=== PATIENT | female | born 1965 | race African-American/Black ===

== ENCOUNTER 2017-04-02 15:37 | Emergency (ER) | payer OTHER ==
[~2017-04-02] VITALS: Ht 175.3 cm; Wt 65.8 kg
[2017-04-02 15:37] VITALS: BP 128/79
[~2017-04-02 15:37] MED LIST: ACET1TAB25
[2017-04-02 16:21] LABS: APPEARANCE,URINE Slightly Cloudy (CLEAR); BILIRUBIN,URINE Negative (NEGATIVE); BLOOD, URINE Negative Ery/uL (NEGATIVE); COLOR,URINE Dark (YELLOW); KETONES,URINE Negative (NEGATIVE); LEUKOCYTE ESTERASE ,URINE Negative (NEGATIVE); NITRITE, URINE Positive (NEGATIVE); PROTEIN,URINE Negative (NEGATIVE); UGLUCOSE Negative (NEGATIVE); UROBILINOGEN,URINE 0.2 EU/dL (0.2)
[2017-04-02 16:39] LABS: BACTERIA,URINE None seen /HPF (None Seen); RBC,URINE 0-3 /HPF (0-2); SQUAMOUS EPITHELIAL CELL,UR Few /HPF (None Seen); WBC,URINE 0-3 /HPF (0-3)
[2017-04-02] MEDS ORDERED: CEFTRIAXONE 500 MG VIAL ONE (17:00)
[2017-04-02] MEDS ORDERED: LIDOCAINE HCL/PF 2 % 5ML SDV 5 ML VIAL ONE (17:00)
[2017-04-02] MEDS ORDERED: AZITHROMYCIN 250 MG TABLET PO ONE (17:00)
[2017-04-02] MEDS ORDERED: CEFTRIAXONE 1 G VIAL IM ONE (17:00)
[2017-04-02] MEDS ORDERED: AZITHROMYCIN 250 MG TABLET ONE (17:00)
== END 2017-04-02 17:22 | disposition home or self-care (01) ==
LOC: ER 15:45
DX: N39.0 Urinary tract infection, site not specified (principal); F17.200 Nicotine dependence, unspecified, uncomplicated
CPT/HCPCS: 81001; 84703; 87077; 87086; 87186; 96372; 99284; A4606; J0696; J3490; Z7610; 81000-TC

== ENCOUNTER 2018-01-13 14:45 | Emergency (ER) | payer OTHER ==
[~2018-01-13] VITALS: Ht 175.3 cm; Wt 65.8 kg
[2018-01-13] MEDS ORDERED: CEFTRIAXONE 500 MG VIAL IM ONE (16:00)
[2018-01-13] MEDS ORDERED: AZITHROMYCIN 250 MG TABLET PO ONE (16:00)
[2018-01-13 16:27] LABS: APPEARANCE,URINE Clear (CLEAR); BILIRUBIN,URINE Negative (NEGATIVE); BLOOD, URINE Negative Ery/uL (NEGATIVE); COLOR,URINE Yellow (YELLOW); KETONES,URINE Negative (NEGATIVE); LEUKOCYTE ESTERASE ,URINE Trace (NEGATIVE); NITRITE, URINE Negative (NEGATIVE); PROTEIN,URINE Negative (NEGATIVE); UGLUCOSE Negative (NEGATIVE); UROBILINOGEN,URINE 0.2 EU/dL (0.2)
[2018-01-13 16:30] LABS: RBC,URINE 0-2 /HPF (0-2)
[2018-01-13] MEDS ORDERED: ONDANSETRON 4 MG TAB.RAPDIS SL ONE (16:30)
[2018-01-13] MEDS ORDERED: TRAMADOL HCL 50 MG TABLET PO ONE (16:30)
[2018-01-13 16:31] LABS: BACTERIA,URINE None seen /HPF (None Seen); SQUAMOUS EPITHELIAL CELL,UR Rare /HPF (None Seen); WBC,URINE 0-3 /HPF (0-3)
[2018-01-13] MEDS ORDERED: CEFTRIAXONE 500 MG VIAL ONE (16:49)
[2018-01-13] MEDS ORDERED: ONDANSETRON 4 MG TAB.RAPDIS ONE (16:50)
[2018-01-13] MEDS ORDERED: AZITHROMYCIN 250 MG TABLET ONE (16:50)
[2018-01-13] MEDS ORDERED: TRAMADOL HCL 50 MG TABLET ONE (16:50)
[2018-01-13] MEDS ORDERED: LIDOCAINE /MPF 1% VIAL 5 ML VIAL ONE (16:51)
--- NOTE | 2018-01-13 16:59 | NUR ---
Patient discharged to home in stable condition. Written and verbal after care instructions given. Patient verbalizes understanding of instruction.
[2018-01-13 17:10] VITALS: BP 128/75
== END 2018-01-13 17:10 | disposition home or self-care (01) ==
LOC: ER 14:50
DX: N73.8 Other specified female pelvic inflammatory diseases (principal); N85.8 Other specified noninflammatory disorders of uterus; R10.31 Right lower quadrant pain; F17.200 Nicotine dependence, unspecified, uncomplicated; Z60.2 Problems related to living alone
CPT/HCPCS: 81001; 84703; 87210; 87491; 87591; 96372; 99284; A4606; A6402; J0696; J3490; Q0162; Z7610; 81000-TC

== ENCOUNTER 2019-02-14 20:14 | Emergency (ER) | payer OTHER ==
[~2019-02-14] VITALS: Ht 175.3 cm; Wt 65.8 kg
[2019-02-14 20:43] VITALS: BP 146/80
[2019-02-14] MEDS ORDERED: AZITHROMYCIN 250 MG TABLET PO ONE (21:00)
[2019-02-14] MEDS ORDERED: ONDANSETRON 4 MG TAB.RAPDIS PO ONE (21:00)
[2019-02-14] MEDS ORDERED: CEFTRIAXONE 500 MG VIAL IM ONE (21:00)
[2019-02-14 21:08] LABS: APPEARANCE,URINE Clear (CLEAR); BILIRUBIN,URINE Negative (NEGATIVE); BLOOD, URINE Negative Ery/uL (NEGATIVE); COLOR,URINE Yellow (YELLOW); KETONES,URINE Trace (NEGATIVE); LEUKOCYTE ESTERASE ,URINE Negative (NEGATIVE); NITRITE, URINE Negative (NEGATIVE); PH,URINE 5.5 (5.0-8.0); PROTEIN,URINE Negative (NEGATIVE); UGLUCOSE Negative (NEGATIVE); UROBILINOGEN,URINE 0.2 EU/dL (0.2)
[2019-02-14] MEDS ORDERED: CEFTRIAXONE 500 MG VIAL ONE (21:09)
[2019-02-14] MEDS ORDERED: LIDOCAINE /MPF 1% VIAL 5 ML VIAL ONE (21:09)
[2019-02-14] MEDS ORDERED: ONDANSETRON 4 MG TAB.RAPDIS ONE (21:10)
[2019-02-14] MEDS ORDERED: AZITHROMYCIN 250 MG TABLET ONE (21:10)
[2019-02-14 21:24] LABS: BACTERIA,URINE Few /HPF (None Seen); RBC,URINE 0-2 /HPF (0-2); SQUAMOUS EPITHELIAL CELL,UR Few /HPF (None Seen); WBC,URINE 0-2 /HPF (0-3)
== END 2019-02-14 21:38 | disposition home or self-care (01) ==
LOC: ER 20:16
DX: Z20.2 Contact with and (suspected) exposure to infections with a predominantly sexual mode of transmission (principal); F17.200 Nicotine dependence, unspecified, uncomplicated; Z60.2 Problems related to living alone
CPT/HCPCS: 81001; 87491; 87591; 96372; 99283; J0696; J3490; Q0162; 81000-TC

== ENCOUNTER 2019-06-18 13:41 | Emergency (ER) | payer OTHER ==
[~2019-06-18] VITALS: Ht 165.1 cm; Wt 68.0 kg
[2019-06-18 13:53] VITALS: BP 141/85
== END 2019-06-18 14:34 | disposition home or self-care (01) ==
LOC: ER 13:41
DX: S02.5XXA Fracture of tooth (traumatic), initial encounter for closed fracture (principal); F17.200 Nicotine dependence, unspecified, uncomplicated; Z60.2 Problems related to living alone; X58.XXXA Exposure to other specified factors, initial encounter; Y93.89 Activity, other specified; Y92.89 Other specified places as the place of occurrence of the external cause; Y99.8 Other external cause status

== ENCOUNTER 2019-10-18 22:25 | Emergency (ER) | payer OTHER ==
[~2019-10-18] VITALS: Ht 175.3 cm; Wt 65.8 kg
--- NOTE | 2019-10-18 22:50 | NUR ---
PATIENT CAME TO ER BED 16 C/O SHARP 8/10 PELVIC PAIN FOR THE PAST 3x DAYS. PATIENT STATES THAT SHE TOOK 2 NAPROXEN PILLS PRIOR TO ARRIVAL. PATIENT STATES THAT IT PETIT A LITTLE WHEN SHE PEES. AAOX4. NO SOB. BREATHING EVENLY AND UNLABORED ON ROOM AIR.
[2019-10-18 23:02] LABS: APPEARANCE,URINE Clear (CLEAR); BILIRUBIN,URINE Negative (NEGATIVE); BLOOD, URINE Negative Ery/uL (NEGATIVE); COLOR,URINE Yellow (YELLOW); KETONES,URINE Negative (NEGATIVE); LEUKOCYTE ESTERASE ,URINE Negative (NEGATIVE); NITRITE, URINE Negative (NEGATIVE); PH,URINE 5.5 (5.0-8.0); PROTEIN,URINE Negative (NEGATIVE); UGLUCOSE Negative (NEGATIVE); UROBILINOGEN,URINE 0.2 EU/dL (0.2)
[2019-10-18] MEDS ORDERED: CEFTRIAXONE 1 G VIAL IM ONE (23:30)
[2019-10-18] MEDS ORDERED: LIDOCAINE /MPF 1% VIAL 5 ML VIAL ONE (23:38)
[2019-10-18] MEDS ORDERED: CEFTRIAXONE 1 G VIAL ONE (23:38)
--- NOTE | 2019-10-19 | NUR ---
Patient discharged to home in stable condition. Written and verbal after care instructions given. Patient verbalizes understanding of instruction AND RX. PT AMBULATED OUT WITH A STEADY GAIT.
[2019-10-19 00:06] VITALS: BP 118/75
== END 2019-10-19 00:06 | disposition home or self-care (01) ==
LOC: ER 22:27
DX: B75 Trichinellosis (principal); Z60.2 Problems related to living alone; Z79.899 Other long term (current) drug therapy
CPT/HCPCS: 81001; 84703; 96372; 99283; J0696; J3490; 81000-TC

== ENCOUNTER 2019-11-10 21:35 | Emergency (ER) | payer OTHER ==
[~2019-11-10] VITALS: Ht 175.3 cm; Wt 65.8 kg
[2019-11-10 22:20] VITALS: BP 131/94
[2019-11-10] MEDS ORDERED: HYDROCODONE/APAP 5/325MG 1 EACH TABLET PO ONE (22:30)
[2019-11-10] MEDS ORDERED: HYDROCODONE/APAP 5/325MG 1 EACH TABLET ONE (22:32)
--- NOTE | 2019-11-10 22:49 | NUR ---
Patient discharged to home in stable condition. Rx and Written and verbal after care instructions given. Patient verbalizes understanding of instruction.
== END 2019-11-10 22:50 | disposition home or self-care (01) ==
LOC: ER 21:35
DX: K04.7 Periapical abscess without sinus (principal); F17.200 Nicotine dependence, unspecified, uncomplicated; Z60.2 Problems related to living alone

== ENCOUNTER 2020-03-16 19:29 | Emergency (ER) | payer OTHER ==
[~2020-03-16] VITALS: Ht 175.3 cm; Wt 65.8 kg
[2020-03-16 19:34] VITALS: BP 110/70
== END 2020-03-16 20:37 | disposition home or self-care (01) ==
LOC: ER 19:29
DX: K12.0 Recurrent oral aphthae (principal); Z60.2 Problems related to living alone; Z79.899 Other long term (current) drug therapy

== ENCOUNTER 2020-07-05 19:28 | Emergency (ER) | payer OTHER ==
[~2020-07-05] VITALS: Ht 175.3 cm; Wt 63.5 kg
--- NOTE | 2020-07-05 20:12 | NUR ---
URINE COLLECTED. SENT TO LAB
--- NOTE | 2020-07-05 20:18 | NUR ---
BIBS FOR C/O LOWER ABD PAIN X 4 DAYS. +NAUSEA, _VOMITING OR DIARRHEA. PT REPORTED SHE MIGHT HAVE STD HER PARTNER'S OTHER PARTNER WAS DIAGNOSED WITH CHLAMYDIA. AMBULATORY TO BED 9. VSS. WILL CONT TO MONITOR ,
[2020-07-05 20:26] LABS: BASOPHILS # (AUTO) 0.1 /CMM (0.0-0.2); BASOPHILS % (AUTO) 0.6 % (0.0-2.0); HEMATOCRIT 40 % (33-45); HEMOGLOBIN 13.5 g/dL (11.5-14.8); LYMPHOCYTES % (AUTO) 37.4 % (20.0-44.0); MEAN CORPUSCULAR HGB CONC 34 g/dl (31.0-36.0); MEAN CORPUSCULAR VOLUME 87 fL (82-100); MONOCYTES # (AUTO) 0.5 /CMM (0.1-1.30); MONOCYTES % (AUTO) 6.2 % (2.0-12.0); NEUTROPHILS # (AUTO) 4.5 /CMM (1.8-8.9); NEUTROPHILS % (AUTO) 54.8 % (43.0-81.0); PLATELET COUNT (AUTO) 229 /CMM (150-450); RED BLOOD CELL COUNT(AUTO) 4.57 MIL/uL (4.0-5.2); WHITE BLOOD COUNT (AUTO) 8.1 K/uL (4.3-11.0)
[2020-07-05 20:28] LABS: BILIRUBIN,URINE Negative (NEGATIVE); COLOR,URINE YELLOW (YELLOW); LEUKOCYTE ESTERASE ,URINE Negative (NEGATIVE); NITRITE, URINE Negative (NEGATIVE); PROTEIN,URINE Negative (NEGATIVE); UGLUCOSE Negative (NEGATIVE); UROBILINOGEN,URINE 0.2 EU/dL (0.2)
[2020-07-05 20:43] LABS: CALCIUM, SERUM 8.6 mg/dL (8.5-10.1); POTASSIUM 3.6 mmol/L (3.5-5.1)
[2020-07-05 20:49] LABS: ALBUMIN 3.5 g/dL (3.4-5.0); BILIRUBIN,DIRECT 0.1 mg/dL (0.0-0.2); BILIRUBIN,TOTAL 0.3 mg/dL (0.2-1.0); TOTAL PROTEIN, SERUM 7.1 g/dL (6.4-8.2)
[2020-07-05] MEDS ORDERED: DOXY100C2 PO (20:58)
[2020-07-05] MEDS ORDERED: CEFTRIAXONE 500 MG VIAL IM ONE (21:00)
[2020-07-05] MEDS ORDERED: CEFTRIAXONE 500 MG VIAL ONE (21:04)
[2020-07-05] MEDS ORDERED: LIDOCAINE /MPF 1% VIAL 5 ML VIAL ONE (21:04)
--- NOTE | 2020-07-05 21:17 | NUR ---
Patient discharged to home in stable condition. Rx and Written and verbal after care instructions given. Patient verbalizes understanding of instruction.
[2020-07-05 21:18] VITALS: BP 131/75
== END 2020-07-05 21:18 | disposition home or self-care (01) ==
LOC: ER 19:28
DX: Z20.2 Contact with and (suspected) exposure to infections with a predominantly sexual mode of transmission (principal); F17.200 Nicotine dependence, unspecified, uncomplicated; Z90.89 Acquired absence of other organs; Z60.2 Problems related to living alone; Z79.899 Other long term (current) drug therapy
CPT/HCPCS: 36415; 80048; 80076; 81003; 83690; 85025; 87491; 87591; 96372; 99283; J0696; J3490

== ENCOUNTER 2020-11-01 22:00 | Emergency (ER) | payer OTHER ==
[~2020-11-01] VITALS: Ht 175.3 cm; Wt 65.8 kg
[~2020-11-01 22:00] MED LIST changes: +DOXY100C2 PO
[2020-11-01 22:22] VITALS: BP 127/71
[2020-11-01] MEDS ORDERED: TRAM50TA2 PO (22:35)
[2020-11-01] MEDS ORDERED: IBUP-1955 PO (22:35)
[2020-11-01] MEDS ORDERED: AMOX500T2 PO (22:35)
[2020-11-01] MEDS ORDERED: ONDA4TAB5 PO (22:35)
--- NOTE | 2020-11-01 23:02 | NUR ---
Patient discharged to home in stable condition. Written and verbal after care instructions given. Patient verbalizes understanding of instruction.
== END 2020-11-01 23:02 | disposition home or self-care (01) ==
LOC: ER 22:00
DX: K04.7 Periapical abscess without sinus (principal); F17.200 Nicotine dependence, unspecified, uncomplicated; Z60.2 Problems related to living alone; Z79.899 Other long term (current) drug therapy

== ENCOUNTER 2021-02-02 13:23 | Emergency (ER) | payer OTHER ==
[~2021-02-02] VITALS: Ht 175.3 cm; Wt 70.3 kg
[~2021-02-02 13:23] MED LIST changes: +AMOX500T2 PO; +IBUP-1955 PO; +ONDA4TAB5 PO; +TRAM50TA2 PO
--- NOTE | 2021-02-02 13:34 | NUR ---
lower abdomional pain with dysuria x 3 days
--- NOTE | 2021-02-02 13:35 | NUR ---
urine sent to lab
[2021-02-02 13:58] LABS: BILIRUBIN,URINE NEGATIVE (NEGATIVE); COLOR,URINE YELLOW (YELLOW); LEUKOCYTE ESTERASE ,URINE NEGATIVE (NEGATIVE); NITRITE, URINE NEGATIVE (NEGATIVE); PROTEIN,URINE NEGATIVE (NEGATIVE); UGLUCOSE NEGATIVE (NEGATIVE); UROBILINOGEN,URINE 0.2 EU/dL (0.2)
[2021-02-02] MEDS ORDERED: CEFTRIAXONE 500 MG VIAL IM ONE (14:30)
[2021-02-02] MEDS ORDERED: DOXY100C2 PO (14:33)
[2021-02-02] MEDS ORDERED: CEFTRIAXONE 500 MG VIAL ONE (14:42)
[2021-02-02] MEDS ORDERED: LIDOCAINE /MPF 1% VIAL 5 ML VIAL ONE (14:44)
[2021-02-02 15:24] VITALS: BP 124/71
== END 2021-02-02 15:24 | disposition home or self-care (01) ==
LOC: ER 13:26
DX: Z20.2 Contact with and (suspected) exposure to infections with a predominantly sexual mode of transmission (principal); F17.200 Nicotine dependence, unspecified, uncomplicated; Z60.2 Problems related to living alone; Z79.899 Other long term (current) drug therapy
CPT/HCPCS: 81003; 87491; 87591; 96372; 99283; J0696; J3490

== ENCOUNTER 2021-05-01 14:45 | Emergency (ER) | payer OTHER ==
[~2021-05-01] VITALS: Ht 175.3 cm; Wt 65.8 kg
[2021-05-01 14:45] VITALS: BP 112/67
[2021-05-01] MEDS ORDERED: DOXY100C2 PO (15:44)
== END 2021-05-01 15:58 | disposition home or self-care (01) ==
LOC: ER 14:48
DX: Z20.2 Contact with and (suspected) exposure to infections with a predominantly sexual mode of transmission (principal)
CPT/HCPCS: 87491; 87591

== ENCOUNTER 2021-07-27 20:37 | Emergency (ER) | payer OTHER ==
[~2021-07-27] VITALS: Ht 175.3 cm; Wt 63.5 kg
[2021-07-27 20:58] VITALS: BP 118/72
[2021-07-27] MEDS ORDERED: DOXY100C2 PO (21:48)
--- NOTE | 2021-07-27 22:04 | NUR ---
Patient discharged to home in stable condition. Written and verbal after care instructions given. Patient verbalizes understanding of instruction.
== END 2021-07-27 22:04 | disposition home or self-care (01) ==
LOC: ER 20:45
DX: K08.89 Other specified disorders of teeth and supporting structures (principal); F17.200 Nicotine dependence, unspecified, uncomplicated; Z60.2 Problems related to living alone; Z79.899 Other long term (current) drug therapy